=== PATIENT | female | born 1960 | race Caucasian/White ===

== ENCOUNTER → 2016-06-21 | Outpatient (CLI) | payer OTHER ==
[~2016-06-21] MED LIST: ACCUNEB SO1.25 MG/1; ALLERGY MEDICAT25 MG PO; ALUMINUM H320 MG/5 M PO; ANCEF 1GM1 GM/50 M1 IVPB; AZITHROMYCIN 2250 MG PO; BISACODYL SUPP10 MG; BISACODYL SUPP10 MG RECTAL; CEFUROXIME250 MG PO; CENTRUM COMPLE1 EACH; COLACE100 MG PO; COMBIVENT INH; COUMADIN 5 MG TA5 M1 PO; DULERA 200 MCG/13 GM; EMBREL INJECTION; ENBREL50 MG/1 ML SQ; ETODOLAC200 MG; FISH OIL 1,0001 EAC5; FLEET ENEMA118 ML; FOLIC ACID 1 MG1 MG PO; FOLIC ACID1 MG; GLUCOSAMINE-CH480 M1; HYDROCODONE-AP1 EAC6 PO; HYDROCODONE-APA1 TA1 PO; HYDROXYCHLOROQ200 M1; KETOROLAC30 MG/1 M5 IV; LEVAQUIN 500 M500 M2 PO; LIDODERM 5%1 PATCH TRANSDERM; LISINOPRIL10 MG PO; LODINE XL400 MG PO; MAPAP16 MG/0.5 PO; METHOTREXA1 GM/40 M1 INJECTION; MILK OF MA2400 MG/10; MSL20MG/ML IM; MUCINEX TA600 MG/TA2 PO; OMEPRAZOLE 20 M20 M1 PO; OMEPRAZOLE20 M2; OXYCODONE HCL 55 MG PO; PANTOPRAZOLE SO40 M1 IVPB; PERCOCET PO; PHENERGAN 25 MG25 M1 IM; PREDNISONE 10 M10 M1; PREDNISONE 10 M10 M1 PO; PREDNISONE 20 M20 MG PO; PROMETH-CODEIN 65 ML PO; REGLAN 10 MG TA10 MG IV; RESTORIL15 MG PO; TESSALON PERLE100 MG PO; TRAMADOL 50 MG50 MG; TREXALL10 MG PO; ZOFRAN2 MG/1 ML IV
== END ==
LOC: RAD 10:17
DX: J84.9 Interstitial pulmonary disease, unspecified (principal)

== ENCOUNTER → 2017-04-29 | Outpatient (CLI) | payer OTHER | LOC: RAD 08:54 | DX: J98.11 Atelectasis (principal); Z87.81 Personal history of (healed) traumatic fracture ==

== ENCOUNTER → 2018-08-14 | Outpatient (CLI) | payer OTHER | LOC: RAD 08:57 | DX: M47.816 Spondylosis without myelopathy or radiculopathy, lumbar region (principal) ==

== ENCOUNTER → 2018-10-17 | Outpatient (CLI) | payer OTHER ==
[~2018-10-17] VITALS: Ht 170.2 cm; Wt 119.3 kg
[~2018-10-17] MED LIST changes: +AUGMENTIN400 MG/53 PO; +CALCIUM 600 +1 EAC1 PO; +FISH OIL 1,001000 M2 PO; +METFORMIN HCL1000 MG PO; +PROAIR HFA8.5 GM INH; +TYLENOL325 MG PO
--- NOTE | 2018-10-17 16:50 | P ---
[facility] [place] [address] [place] [address] PROCEDURE REPORT Name: BRANDON OSEGUERA Room #: [facility].#: [id number] Admission: 10/17/18 ������������������ Attend Phys: Pradip Crook Discharge: ������������������ Date of : 58 Report #: [id number] THIS REPORT FOR: //name// CC: Pradip Nice DATE OF SERVICE: 10/17/2018 PROCEDURE PERFORMED: Colonoscopy with biopsies. HISTORY OF PRESENT ILLNESS: The patient is a 58-year-old female who reports today for routine followup, history of colon polyps 6 years ago. She denies any symptoms at this time. No family history of colon cancer. DESCRIPTION OF PROCEDURE: The risks and benefits of the procedure were explained to the patient, those risks including but not limited to bleeding, perforation and the risk of sedation. She understood these risks and gave informed consent. Sedation was given using propofol per anesthesia. Next, a digital rectal exam was initially performed, which was normal. Next, using a standard Olympus colonoscope, the scope was placed in the patient's anus and advanced under direct vision to the cecum. The overall prep was excellent. The cecum and ileocecal valve were normal in appearance. In the ascending colon, 3-4 mm sessile polyps were noted. These were removed by cold forceps, otherwise normal. Transverse and descending colon were normal. In the sigmoid colon, a 4 mm sessile polyp also noted and removed with cold forceps. The rectal mucosa was normal. On retroflexion, small nonbleeding internal hemorrhoids were noted. The scope was then withdrawn and the procedure terminated. The patient tolerated the procedure well. IMPRESSION: 1. Small colonic polyps as described above. 2. Internal hemorrhoids. 3. Otherwise, normal colonoscopy. RECOMMENDATIONS: 1. Await biopsy results. 2. If polyps are hyperplastic, repeat in 10 years; if adenomatous polyps, repeat in 5 years. Thank you for allowing me to participate in her care. ��������������������������������������������� <ELECTRONICALLY SIGNED> ���������������������������������������� By: Pradip Ferrer MD ��������������������������������������������� 10/17/18 [id number] Pradip Ferrer MD /nt
--- NOTE | 2018-10-20 15:06 | PATH ---
[facility] [place] [address] PATHOLOGY RPT PROCEDURE Name: ANA ROSA,MARYAMSekou BANDA Room #: [facility] MJonathon.#: [id number] ������������������ Admission: 10/17/18 ������������������ Date of : 58 Discharge: Report #: [id number] Path Case #: [id number] [facility] Accession Number: [id number] . 01 Material submitted: . PART A: colon - ASCENDING COLON POLYP. Modifiers: ascending PART B: sigmoid colon - SIGMOID POLYP . 01 Clinical history: . Hx of polyps . 02 Diagnosis: A. Polyp, ascending colon polyp, endoscopic biopsy: - Minute tubular adenoma; negative for high grade dysplasia. - Remainder of fragments showing hyperplastic polyp; negative for dysplasia. . B. Polyp, sigmoid polyp, endoscopic biopsy: - Compatible with a hyperplastic polyp. - Negative for dysplasia. (IUV/db; 10/20/2018) LBQ/10/20/2018 . 02 Electronically signed: . Gem Pastor MD, Pathologist NPI- [id number] . 01 Gross description: . A. Received in formalin labeled "Maryam Soares, ascending colon," and additionally labeled on the requisition as "polyp BX," are 4 segments of chavez soft tissue measuring 1.3 x 0.9 x 0.3 cm in aggregate dimensions and ranging from 0.3 to 0.4 cm in maximum dimension. The specimen is submitted entirely in cassette A1. . B. Received in formalin labeled "Maryam Soares, sigmoid polyp," is a single segment of chavez soft tissue measuring 0.4 cm in maximum dimension. The specimen is entirely submitted in cassette B1. (TSD; 10/17/2018) TOB/TOB . 02 Pathologist provided ICD-10: D12.2, K63.5 . 02 CPT . 834976, 987067 Specimen Comment: A courtesy copy of this report has been sent to Specimen Comment: [phone], [place] [address] PATHOLOGY RPT PROCEDURE Name: MARYAM SOARES Room #: [facility] Marquez#: [id number] ������������������ Admission: 10/17/18 ������������������ Date of : 58 Discharge: Report #: [id number] Path Case #: [id number] Specimen Comment: Report sent to / DR COSTA Performed at: [address], [place], [place] [id number] MD Dale Cottrell MD Phone: [phone] Performed at: [address] [id number] MD Gem Pastor MD Phone: [phone]
== END | disposition home or self-care (01) ==
LOC: GI 07:20
DX: Z12.11 Encounter for screening for malignant neoplasm of colon (principal); Z86.010 Personal history of colon polyps; D12.2 Benign neoplasm of ascending colon; K63.5 Polyp of colon; K64.8 Other hemorrhoids; I10 Essential (primary) hypertension; E11.9 Type 2 diabetes mellitus without complications; K21.9 Gastro-esophageal reflux disease without esophagitis; M06.9 Rheumatoid arthritis, unspecified; M19.90 Unspecified osteoarthritis, unspecified site; Z98.890 Other specified postprocedural states; Z79.899 Other long term (current) drug therapy; Z96.653 Presence of artificial knee joint, bilateral; Z88.8 Allergy status to other drugs, medicaments and biological substances
CPT/HCPCS: 62110; 62900

== ENCOUNTER → 2018-11-12 | Outpatient (CLI) | payer OTHER | LOC: RAD 11:42 | DX: M77.31 Calcaneal spur, right foot (principal) ==